=== PATIENT | female | born 1985 | race Caucasian/White ===

== ENCOUNTER 2018-03-12 20:00 | Inpatient (IN) | payer BC ==
[2018-03-12 20:46] VITALS: BMI 29.8
[2018-03-12 22:33] LABS: BASO % 0.4 % (0.0-2.0); EOS # 0.1 K/uL (0.0-0.7); EOS % 1.7 % (0.0-4.0); HEMOGLOBIN 10.5 g/dL (12.0-16.0); LYMPH # 1.8 K/uL (1.0-4.3); LYMPH % 21.6 % (20.0-40.0); MEAN CELL VOLUME 76.2 fl (81.0-99.0); MEAN CORPUSCULAR HEMOGLOBIN 25.2 pg (27.0-31.0); MEAN CORPUSCULAR HGB CONC 33.1 g/dL (33.0-37.0); MEAN PLATELET VOLUME 10.8 fl (7.2-11.7); MONO # 0.6 K/uL (0.0-0.8); MONO % 7.3 % (0.0-10.0); NEUT # 5.9 K/uL (1.8-7.0); NRBC % 0.1 % (0.0-0.0); RBC 4.16 Mil/uL (3.80-5.20); RED CELL DISTRIBUTION WIDTH 16.5 % (11.5-14.5); WHITE BLOOD COUNT 8.5 K/uL (4.8-10.8)
[2018-03-13] MEDS ORDERED: Lactated Ringer's 1,000 ML IV ONE ×2 (05:53→09:00)
[2018-03-13] MEDS ORDERED: Fentanyl/Bupivacaine HCl 250 ML EPI ONE ×2 (05:53→23:22)
[2018-03-13] MEDS: Lactated Ringer's 1,000 ML IV ONE ×2 (06:50→19:00)
--- NOTE | 2018-03-13 09:40 | OBPN ---
Datetime: 03/13/2018 09:37 IP Procedures: Sterile Vag Exam IP Progress Plan: Continue present management FHR - Baseline A Provider: 140s IP Fetus A Comments: Prior decelerations have resolved. IP Progress Note Comment: Patient without complaints. heart tracing category 1, prior decelerations have resolved. Plan to continue current management. Discussed plan with patient and all patient questions answered. Vital Signs Provider: Reviewed; Within Normal Limits FHR Category Provider Fetus A: Category I NICHD Variability Prov Fetus A: Moderate 6-25bpm Dilatation, Provider: 1 Effacement, Provider: 0 Station, Provider: -3 NICHD Decel Fetus A IP Provider: None Datetime: 03/13/2018 08:09 IP Progress Impression Other: Tachysystole IP Informed Consent Obtain: Vaginal Delivery Membranes, Provider: Intact Contraction Comments Provider: Q1-2 minutes Gestation - Est Wks by US: 39.2 Presentation-Admit: Vertex NICHD Accel Fetus A IP Provider: [id number]
--- NOTE | 2018-03-13 21:26 | OBPN ---
Datetime: 03/13/2018 18:24 IP Procedures: Sterile Vag Exam IP Progress Plan: Continue present management; Augmentation Contraction Comments Provider: q4-6min FHR - Baseline A Provider: 130s-140s IP Progress Note Comment: Pt without complaints Plan to start pitocin augmentation FHT category I Discussed plan with patient and all patient questions answered. Vital Signs Provider: Reviewed; Within Normal Limits NICHD Accel Fetus A IP Provider: [id number] FHR Category Provider Fetus A: Category I NICHD Variability Prov Fetus A: Moderate 6-25bpm Dilatation, Provider: 1-2 Effacement, Provider: 50 Station, Provider: -2 NICHD Decel Fetus A IP Provider: None
[2018-03-13] MEDS ORDERED: Oxytocin 30 UNIT 30 UNITS/500 ML BAG IV ONE (21:45)
[2018-03-14] MEDS: Lactated Ringer's 1,000 ML IV ONE ×3 (03:00→12:30)
[2018-03-14] MEDS ORDERED: Fentanyl/Bupivacaine HCl 250 ML EPI ONE (14:29)
--- NOTE | 2018-03-14 15:04 | OBPN ---
Datetime: 03/14/2018 15:02 IP Informed Consent Obtain: Vaginal Delivery IP Progress Plan: Continue present management; Induction FHR - Baseline A Provider: 130 Vital Signs Provider: Reviewed; Within Normal Limits NICHD Variability Prov Fetus A: Moderate 6-25bpm Datetime: 03/14/2018 11:00 IP Procedures Other: Cook catheter placed Membranes, Provider: Intact Contraction Comments Provider: Q3-4 min IP Fetus A Comments: Occasional late decels Gestation - Est Wks by US: 40.0 Presentation-Admit: Vertex IP Progress Note Comment: S: Resting comfortably with an epidural O: see exam section EFM Category II at times A/P: 32 year old G1 at 40.0 admitted 03/12 undergoing IOL for anyhydramnions - Due to late decelerations the pitocin has been turned off - Plan to place Cook catheter for furtehr cervical ripening, will start pitocin again at 2 units i n 1-2 hours - Bolusing patient as well, continued position changes - We did discuss the possibility of a if there continues to be late decelerations with c ontractions, preventing pitocin administration Bobbi Gr MD OB Fellow NICHD Accel Fetus A IP Provider: [id number] FHR Category Provider Fetus A: Category II Dilatation, Provider: 2 Effacement, Provider: 20 Station, Provider: -3 NICHD Decel Fetus A IP Provider: Late
[2018-03-14] MEDS ORDERED: Oxytocin 30 UNIT 30 UNITS/500 ML BAG IV ONE (22:01)
--- NOTE | 2018-03-14 22:01 | OBPN ---
Datetime: 03/14/2018 20:05 IP Progress Impression: Normal progression of labor IP Informed Consent Obtain: Vaginal Delivery IP Procedures: Sterile Vag Exam IP Progress Plan: Continue present management; Induction Membranes, Provider: Ruptured Contraction Comments Provider: Q3 min FHR - Baseline A Provider: 140 Gestation - Est Wks by US: 40.0 Presentation-Admit: Vertex IP Progress Note Comment: S: Patient feeling more pressure, also having some nausea and vomiting O: see exam section EFM Category I A/P: 32 year old G1 at 40.0 admitted 03/12 undergoing IOL for anhydramnions, now in active labor - Continue pitocin - Plan to use peanut ball - Planning for a vaginal delivery Bobbi Gr MD OB Fellow Vital Signs Provider: Reviewed; Within Normal Limits FHR Category Provider Fetus A: Category I NICHD Variability Prov Fetus A: Moderate 6-25bpm Dilatation, Provider: 6 Effacement, Provider: 80 Station, Provider: 0 NICHD Decel Fetus A IP Provider: None Datetime: 03/14/2018 17:30 Amniotic Fluid Color, Provider: Clear NICHD Accel Fetus A IP Provider: [id number] Datetime: 03/14/2018 15:02 IP Fetus A Comments: Occasional late variables
[2018-03-15] MEDS ORDERED: Phenylephrine 10 mg/ml Inj ONE (00:49)
[2018-03-15] MEDS ORDERED: OXYTOCIN/0.9 % NS 20 UNIT/1,000 ML BAG IV ONE (01:01)
[2018-03-15] MEDS ORDERED: Azithromycin 500 MG in Sodium Chloride 0.9% 250 ML IVPB STA (01:05)
[2018-03-15] MEDS ORDERED: ceFAZolin IV 2 gm in Dextrose 2 GM/50 ML BAG IVPB ONE (01:05)
--- NOTE | 2018-03-15 01:13 | OBPN ---
Datetime: 03/15/2018 01:08 IP Progress Impression: Arrest of dilatation/descent IP Informed Consent Obtain: Section Delivery IP Procedures: Sterile Vag Exam Membranes, Provider: Ruptured Contraction Comments Provider: q 2 mins FHR - Baseline A Provider: 150 IP Progress Note Comment: Patient evaluated, patient unchanged cervical exam over 4 hours with adequ ate contractions. Pt an arrest of labor, FHR = 150 mod mp, +accels, no decels, advised to proceed wi th for delivery. Discussed with patient risks/benefits of , consent obtained, all questions answered. Ancef/Azithromycin given pre-operatively, SCDs bilaterally. Will proceed to OR Vital Signs Provider: Reviewed; Within Normal Limits NICHD Accel Fetus A IP Provider: [id number] NICHD Variability Prov Fetus A: Moderate 6-25bpm Dilatation, Provider: 6 Effacement, Provider: 80 Station, Provider: 0 Datetime: 03/14/2018 22:32 IP Progress Plan: Continue present management; Induction Gestation - Est Wks by US: 40.0 Presentation-Admit: Vertex FHR Category Provider Fetus A: Category I NICHD Decel Fetus A IP Provider: None
[2018-03-15] MEDS ORDERED: ceFAZolin 2 GM in Sodium Chloride 0.9% 100 ML IVPB ONE (01:30)
[2018-03-15] MEDS ORDERED: Lidocaine 2% PF (10 ml) Amp ONE ×2 (01:41→02:54)
[2018-03-15] MEDS ORDERED: Dexamethasone 4 mg/1 ml ONE ×2 (01:51→01:57)
[2018-03-15] MEDS ORDERED: Midazolam 2 MG/2 ML VIAL ONE (02:09)
[2018-03-15] MEDS ORDERED: Ketamine 50 mg/ml Inj (10 ml) ONE (02:11)
[2018-03-15] MEDS ORDERED: Esmolol 100 mg/10ml Inj IV ONE ×2 (02:17→02:32)
[2018-03-15] MEDS ORDERED: Morphine 4 MG/ML VIAL IVP PRN (03:09)
[2018-03-15] MEDS ORDERED: Oxycodone/Acetaminophen 5/325 mg Tab PO PRN ×4 (03:25→15:00)
--- NOTE | 2018-03-15 03:25 | OBDS ---
MATERNAL INFORMATION Provider Comments: Surgeon: Dr. Carcamo Phone Specialist: Dr. Leija Pre-op Dx: Arrest of labor Surgery: LTCS Post op Dx: same Findings: Live male infant 7lbs 110z, 9/9, vertex, grossly nml tubes ovaries, placenta, uterus, RO T position Anesthesia: Epidural, Dr. Araya EBL: 100mL Total input: 1900mL UO: 200mL blood tinged Complications: none Condition: stable Pathology: cord ph LABOR SUMMARY EDC: 03/14/2018 00:00 No. Babies in Womb: 1 LABOR INFORMATION Cervical Ripening Agents: Cervidil (Annotations: inserted by Dr. Leija ) Other Ripening Agents: cook cevical balloon insert by dr leija Group B Beta Strep: Negative MEMBRANES Membranes Rupture Method: Artificial Rupture of Membranes: 03/14/2018 17:30 Length of Rupture (hrs): 8.60 Amniotic Fluid Color: Clear Amniotic Fluid Amount: Small Amniotic Fluid Odor: Normal STAGES OF LABOR Stage 3 hrs: 0 Stage 3 min: 1 CSECTION DELIVERY Primary Indication: Secondary Arrest of Dilatation CSection Urgency: Non Elective CSection Incidence: Primary Labor: Labor Elective: Nonelective CSection Incision: Lower Uterine Transverse BABY A INFORMATION Delivery Date/Time: 03/15/2018 02:06 Method of Delivery: Born in Route : No : N/A Forceps: N/A Vacuum Extraction: N/A Shoulder Dystocia : No SHOULDER DYSTOCIA BABY A Delivery Date/Time: 03/15/2018 02:06 PRESENTATION/POSITION BABY A Presentation: Cephalic PLACENTA INFORMATION BABY A Placenta Delivery Time : 03/15/2018 02:07 Placenta Method of Delivery: Manual Removal Placenta Status: Delivered SCORES BABY A Heart Rate 1 min: >100 bpm Resp Effort 1 min: Good Cry Reflex Irritability 1 min: Cough or Sneeze or Pulls Away Muscle Tone 1 min: Active Motion Color 1 min: Body Farner, Extremities Blue Resuscitation Effort 1 min: N/A SCORE 1 MIN: 9 Heart Rate 5 min: >100 bpm Resp Effort 5 min: Good Cry Reflex Irritability 5 min: Cough or Sneeze or Pulls Away Muscle Tone 5 min: Active Motion Color 5 min: Body Farner, Extremities Blue Resuscitation Effort 5 min: N/A SCORE 5 MIN: 9 INFANT INFORMATION BABY A Gestational Age at Delivery: 40.0 Gestational Status: Term Outcome : Liveborn Infant Condition : Stable Sex: Male WEIGHT/LENGTH BABY A Infant Birthweight (gms): 3500 Weight (lb): 7 Infant Weight (oz): 11
[2018-03-15] MEDS ORDERED: Simethicone 80 mg Chewtab PO SCH (04:00)
--- NOTE | 2018-03-15 06:15 | OP ---
PROCEDURE DATE: 03/15/2018 SURGEON: Payal Carcamo MD [employer] MAKER: Dr. Gr. PREOPERATIVE DIAGNOSIS: Arrest of labor. POSTOPERATIVE DIAGNOSIS: Arrest of labor. PROCEDURE: Low-transverse section. FINDINGS: A live male infant, cephalic presentation, 7 pounds 11 ounces, 9 and 9 Apgars, clear fluid; grossly normal tubes, ovaries, placenta, and uterus. ROT presentation. TYPE OF ANESTHESIA: Epidural. ANESTHESIA ADMINISTERED BY: Dr. Araya. ESTIMATED BLOOD LOSS: 1000 mL. URINE OUTPUT: 200 mL, blood tinged. TOTAL FLUID INPUT: 1900 mL. COMPLICATIONS: None. CONDITION: Stable. PATHOLOGY SPECIMEN: Cord gas and cord blood. INDICATIONS: This is a 32-year-old at 40 weeks, history of two spontaneous who was found to be anhydramnios at her last ultrasound. It was advised to proceed with induction. The patient progressed with 6 cm dilated and despite adequate contraction did not make any more cervical change to determine to be in arrest of labor, was advised to proceed with for delivery. The patient was advised of the risks and benefits of including risk of bleeding, infection; damage to surrounding organs such as bowel, bladder, ureter or uterus. The patient verbalized understanding and signed the informed consent. DESCRIPTION OF PROCEDURE: The patient was taken to OR. Ancef was given preoperatively. SCDs were placed bilaterally. The patient was prepped and draped in normal sterile fashion in dorsal supine position with a leftward tilt. Pfannenstiel skin incision was made with a scalpel and carried through the underlying layer of fascia with the Bovie. Fascia was incised in the midline with the Bovie, and the incision was extended laterally with Bermeo scissors. Deena clamp was used to tent up the inferior aspect of this incision, which was dissected off the underlying pyramidalis muscles with the Bermeo scissors. In a similar fashion, we tented up the superior aspect of this incision which we dissected off the underlying rectus abdominis muscles with the Bermeo scissors. The muscles were bluntly in the midline with Allis clamps. The peritoneum was identified, tented up, and entered sharply. The incision was extended superiorly and inferiorly with good visualization of all underlying organs. The vesicouterine peritoneum was identified, grasped with pickups, and dissected off the lower uterine segment with Metzenbaum scissors. The lower uterine segment was incised in a transverse fashion. The uterine cavity was entered. The incision was extended laterally with bandage scissors. The infant was delivered in cephalic presentation atraumatically, followed by shoulders, and rest of the atraumatically. Mouth and nares were suctioned. Cord was clamped and cut. was handed off to pediatric team. Cord gas was obtained. Cord blood was obtained, and placenta was extracted manually. The uterus was exteriorized, cleared of all clots. It was noted that there was an extension on the right side of the hysterotomy which was repaired with an 0 Vicryl stitch as well as the remainder of the hysterotomy. Small areas that were bleeding was reinforced with 0 Vicryl, and the overall suture was reinforced with 0 Monocryl. The hysterotomy site appeared to be hemostatic. The uterus was returned to the abdomen, cleared off all clots. The uterine incision again appeared to be hemostatic. Peritoneum was closed with 2-0 Monocryl. Muscles reapproximated with same stitch. Small bleeders on the muscles were cauterized with a Bovie. The fascia was closed with an 0 Vicryl stitch. The subcutaneous fat was reapproximated with a plain gut, and the skin was closed with 4-0 Monocryl. Sponge, lap, and needle counts were correct x4. The patient was taken to the recovery room in stable condition. There were no other complications. Payal Carcamo MD NORA
[2018-03-15 08:22] LABS: HEMOGLOBIN 7.3 g/dL (12.0-16.0); MEAN CELL VOLUME 75.9 fl (81.0-99.0); MEAN CORPUSCULAR HEMOGLOBIN 24.8 pg (27.0-31.0); MEAN CORPUSCULAR HGB CONC 32.6 g/dL (33.0-37.0); RBC 2.93 Mil/uL (3.80-5.20); RED CELL DISTRIBUTION WIDTH 16.3 % (11.5-14.5); WHITE BLOOD COUNT 16.8 K/uL (4.8-10.8)
[2018-03-15] MEDS: Oxycodone/Acetaminophen 5/325 mg Tab PO PRN ×2 (08:29→14:57)
[2018-03-15] MEDS ORDERED: Multivitamin With Minerals Tab PO SCH (09:00)
[2018-03-15] MEDS: Multivitamin With Minerals Tab PO SCH (09:24)
[2018-03-15] MEDS: Simethicone 80 mg Chewtab PO SCH ×3 (09:25→21:37)
[2018-03-16] MEDS: Simethicone 80 mg Chewtab PO SCH ×4 (04:42→21:06)
[2018-03-16] MEDS: Multivitamin With Minerals Tab PO SCH (08:25)
--- NOTE | 2018-03-16 10:44 | OBPPN ---
Datetime: 03/16/2018 10:41 PP Pain Prov: Within normal limits PP Nausea Prov: Denies PP Flatus Prov: Yes PP Breasts Prov: Normal PP Heart Prov: Normal PP Lungs Prov: Normal PP Abdomen/Uterus Prov: Normal PP Lochia Prov: Normal PP Vulva/Perineum Prov: Normal PP CVA Tenderness Prov: Normal PP Extremities Prov: Normal PP Comments Phys Exam Prov: Fundus firm under umbilicus Incision clean/dry/intact PP Impression Prov: Normal progression PP Plan Prov: Continue present management PP Progress Note Prov: Patient denies CP, no SOB, no N/V, tolerating PO diet, ambulating/voiding wel l, mild lochia, +flatus A/P POD #1 1. Continue current post-op orders 2. Percocet/Motrin prn pain IP PP Procedures: None Vital Signs Provider PP: Reviewed; Within Normal Limits
[2018-03-17] MEDS: Simethicone 80 mg Chewtab PO SCH ×5 (03:34→21:42)
--- NOTE | 2018-03-17 07:27 | OBPPN ---
Datetime: 03/17/2018 07:23 PP Pain Prov: Within normal limits PP Nausea Prov: Denies PP Flatus Prov: Yes PP BM Prov: Yes PP Abdomen/Uterus Prov: Normal PP Lochia Prov: Normal PP Extremities Prov: Normal PP C/S Incision Prov: Normal PP Progress Prov: Normal PP Comments Phys Exam Prov: Incision intact PP Impression Prov: Normal progression PP Plan Prov: Continue present management PP Progress Note Prov: POD 2 s/p primary c/s for arrest of dilation, doing well, breast and bottle f eeding Continue current care Vital Signs Provider PP: Reviewed
[2018-03-17] MEDS: Multivitamin With Minerals Tab PO SCH (13:24)
[2018-03-18] MEDS: Simethicone 80 mg Chewtab PO SCH ×2 (04:23→09:18)
[2018-03-18] MEDS: Multivitamin With Minerals Tab PO SCH (09:18)
--- NOTE | 2018-03-18 09:34 | OBDCSUM ---
Datetime: 03/18/2018 09:32 Discharged to, Provider: Home Follow up at, Provider: [facility] Disch Instr Activity: Normal activity Disch Instr Diet: Regular Discharge Instructions, Provider: Routine instructions given Discharge Diagnosis, Provider: Term Delivered Follow up in weeks, Provider: 1-2w Disch Referrals: None Contraception discussed, Prov: Yes Disch Activity Restrictions: Minimize stair-climbing; No sexual activity; Nothing in vagina - Interc ourse, tampons, douche Discharge Diagnosis Prov Other: Anemia Datetime: 03/17/2018 12:00 Discharged to, Provider: Home Discharge Instructions, Provider: Routine instructions given Discharge Diagnosis, Provider: Term Delivered Disch Referrals: None Contraception discussed, Prov: Yes
--- NOTE | 2018-03-18 09:35 | OBPPN ---
Datetime: 03/18/2018 09:30 PP Pain Prov: Within normal limits PP Nausea Prov: Denies PP Flatus Prov: Yes PP BM Prov: Yes PP Breasts Prov: Normal PP Heart Prov: Normal PP Lungs Prov: Normal PP Abdomen/Uterus Prov: Normal PP Lochia Prov: Normal PP Vulva/Perineum Prov: Normal PP CVA Tenderness Prov: Normal PP Extremities Prov: Normal PP C/S Incision Prov: Normal PP Progress Prov: Normal PP Impression Prov: Normal progression PP Plan Prov: Continue present management PP Progress Note Prov: She had BM ZH/H 11/17 A: S/P day 3 Anemia - asymptomatic PLAN: Discharge home and follow up in 1-2w [place] 90 QD Vital Signs Provider PP: Reviewed
[2018-03-18 21:43] VITALS: BP 132/79; PULSE 82; RESP 20; TEMP 98.1; O2SAT 100
== END 2018-03-18 14:50 | disposition home or self-care (01) | DRG 787 ==
LOC: H.EROB2 20:00 → EDSTATUS 20:47 → H.L&D 21:23 → H.OB/GYN 03-15 05:50
PROVIDERS: ADMIT Obstetrics & Gynecology Gynecology; ATTEND Obstetrics & Gynecology Gynecology
PROC: 4A1HXCZ Monitoring of Products of Conception, Cardiac Rate, External Approach (ICD-10-PCS; 2018-03-12)
PROC: 10D00Z1 Extraction of Products of Conception, Low, Open Approach (ICD-10-PCS; principal; 2018-03-15)
DX: O76 Abnormality in fetal heart rate and rhythm complicating labor and delivery (principal); O41.03X0 Oligohydramnios, third trimester, not applicable or unspecified; O62.1 Secondary uterine inertia; O62.0 Primary inadequate contractions; Z37.0 Single live birth; Z3A.40 40 weeks gestation of pregnancy